=== PATIENT | female | born 1950 | race Caucasian/White ===

== ENCOUNTER 2022-08-15 08:35 | Emergency (ER) | payer MEDICARE, OTHER ==
[2022-08-15] MEDS ORDERED: HYDROcodone/Acetaminophen 10/325 mg Tablet ONE (09:12)
[2022-08-15] MEDS ORDERED: Ketorolac Tromethamine 60 MG/2 ML VIAL ONE (09:12)
[2022-08-15 09:56] LABS: Bilirubin Moderate (Negative); Blood, Urine Negative (Negative); Glucose, Urine (Dipstick) Negative (Negative); Ketone, Urine 15 mg/dL (Negative); Leukocyte Small (Negative); Nitrite Positive (Negative); Protein, Urine (Dipstick) 100 mg/dL (Neg-Trace)
[2022-08-15 09:58] LABS: Clarity Cloudy (Clear); Specific Gravity, Urine 1.022 (1.002-1.036)
[2022-08-15] MEDS ORDERED: Nitrofurantoin Monohyd/M-Cryst 100 MG CAP ONE (10:01)
[2022-08-15 10:13] LABS: Bacteria/HPF 3+ HPF (None Seen); Mucous/LPF 4+ LPF (<2+); RBC/HPF 0-3 HPF (0-3); WBC/HPF Greater Than 50 HPF (0-3)
== END 2022-08-15 10:39 | disposition home or self-care (01) ==
LOC: BURERS 08:35
DX: N39.0 Urinary tract infection, site not specified (principal); M47.816 Spondylosis without myelopathy or radiculopathy, lumbar region; I25.10 Atherosclerotic heart disease of native coronary artery without angina pectoris; E78.5 Hyperlipidemia, unspecified; I10 Essential (primary) hypertension
CPT/HCPCS: 72100; 72170; 81003; 81015; 96372; J1885

== ENCOUNTER 2022-08-20 12:58 | Inpatient (IN) | payer MEDICARE, OTHER ==
[2022-08-20 13:58] LABS: #Basophils 0.1 thou/uL (0.0-0.2); #Lymphocytes 1.1 thou/uL (1.20-3.40); #Monocytes 0.4 thou/uL (0.11-0.59); #Neutrophils 5.8 thou/uL (1.40-6.50); %Basophils 0.8 % (0.0-1.0); %Eosinophils 0.2 % (0.0-10.0); %Lymphocytes 14.7 % (21.0-51.0); %Monocytes 5.9 % (0.0-10.0); %Neutrophils 78.4 % (42.0-75.0); Hemoglobin 12.4 g/dL (12.0-16.0); Mean Corpuscular HGB CONC 30.6 g/dL (32.0-36.0); Mean Corpuscular Hemoglobin 26.9 pg (27.0-31.0); Mean Platelet Volume 6.7 fL (7.4-10.4); Platelet Count 271 10x3/uL (130-400); RBC Distribution Width 13.5 % (11.5-14.5); Red Blood Cell (RBC) Count 4.61 mill/uL (4.20-5.40); White Blood Cell (WBC) Count 7.4 10x3/uL (4.8-10.8)
[2022-08-20] MEDS ORDERED: Ketorolac Tromethamine 30 MG/ML VIAL ONE (14:11)
[2022-08-20] MEDS ORDERED: Fentanyl 100 MCG/2 ML VIAL ONE ×3 (14:11→21:21)
[2022-08-20 14:16] LABS: ALT (SGPT) 18 U/L (8-55); AST (SGOT) 20 U/L (5-34); Albumin 3.3 g/dL (3.4-4.8); Alkaline Phosphatase 198 U/L (40-110); Anion Gap 13 mmol/L (10-20); BUN (Urea Nitrogen) 12 mg/dL (9.8-20.1); Bilirubin, Total 1.4 mg/dL (0.2-1.2); Calc. Creatinine Clearance 0 mL/min (70-130); Calcium 8.9 mg/dL (7.8-10.44); Carbon Dioxide 34 mmol/L (23-31); Chloride 96 mmol/L (98-107); Estimated GFR 87; Globulin 4.2 g/dL (2.4-3.5); Glucose 98 mg/dL (80-115); Potassium 2.8 mmol/L (3.5-5.1); Protein, Total 7.5 g/dL (5.8-8.1); Sodium 140 mmol/L (136-145)
[2022-08-20] MEDS ORDERED: Ondansetron PF 4 MG/2 ML Vial ONE (14:37)
[2022-08-20 15:58] LABS: Clarity Clear (Clear)
[2022-08-20 15:59] LABS: Bilirubin Small (Negative); Blood, Urine Negative (Negative); Glucose, Urine (Dipstick) Negative (Negative); Ketone, Urine 80 mg/dL (Negative); Leukocyte Negative (Negative); Nitrite Negative (Negative); Protein, Urine (Dipstick) Trace mg/dL (Neg-Trace); Specific Gravity, Urine 1.015 (1.005-1.030)
[2022-08-20] MEDS ORDERED: Potassium Chloride 20 MEQ TAB ONE (16:27)
[2022-08-20] MEDS ORDERED: Ibuprofen 200 MG TAB PO PRN (17:15)
[2022-08-20] MEDS ORDERED: HYDROcodone/Acetaminophen 5/325 mg Tablet PO PRN ×2 (17:18)
[2022-08-20] MEDS ORDERED: fentaNYL 50 mcg/mL 1 mL Vial SLOW IVP PRN (17:19)
[2022-08-20] MEDS ORDERED: Ondansetron ODT 4 MG TAB SL PRN (17:30)
[2022-08-20] MEDS ORDERED: Acetaminophen 325 MG TAB PO PRN (17:30)
[2022-08-20] MEDS ORDERED: Ondansetron PF 4 MG/2 ML Vial IVP PRN (17:30)
[2022-08-20] MEDS: HYDROcodone/Acetaminophen 5/325 mg Tablet PO SCH (18:39)
[2022-08-20] MEDS: Gabapentin 300 MG CAP PO SCH (20:59)
[2022-08-20] MEDS: Amlodipine 5 MG TAB PO SCH (21:00)
[2022-08-20] MEDS: rOPINIRole HCl 0.25 MG TAB PO SCH (21:00)
[2022-08-20] MEDS ORDERED: Nitrofurantoin Monohyd/M-Cryst 100 MG CAP PO SCH (21:00)
[2022-08-20] MEDS: Atorvastatin Calcium 10 MG TAB PO SCH (21:01)
[2022-08-20] MEDS: Carvedilol 3.125 MG TAB PO SCH (21:01)
[2022-08-20] MEDS: Lisinopril 20 MG TAB PO SCH (21:01)
[2022-08-20] MEDS: hydrALAZINE 25 MG TAB PO SCH (21:01)
[2022-08-20] MEDS: Fentanyl 100 MCG/2 ML VIAL SLOW IVP PRN (21:38)
[2022-08-21] MEDS: HYDROcodone/Acetaminophen 5/325 mg Tablet PO SCH (00:14)
[2022-08-21] MEDS: Gabapentin 300 MG CAP PO SCH ×3 (05:43→21:50)
[2022-08-21] MEDS: Levothyroxine Sodium 50 MCG TAB PO SCH (05:44)
[2022-08-21] MEDS: Acetaminophen 325 MG TAB PO PRN ×2 (05:47→21:48)
[2022-08-21 06:37] LABS: Anion Gap 12 mmol/L (10-20); BUN (Urea Nitrogen) 15 mg/dL (9.8-20.1); Calc. Creatinine Clearance 115 mL/min (70-130); Calcium 8.8 mg/dL (7.8-10.44); Carbon Dioxide 33 mmol/L (23-31); Chloride 95 mmol/L (98-107); Estimated GFR 77; Glucose 99 mg/dL (80-115); Sodium 137 mmol/L (136-145)
[2022-08-21] MEDS ORDERED: Fentanyl 100 MCG/2 ML VIAL ONE (07:47)
[2022-08-21] MEDS: Fentanyl 100 MCG/2 ML VIAL SLOW IVP PRN (07:57)
[2022-08-21] MEDS: Cholecalciferol 1,000 UNITS (25 MCG) TAB PO SCH (10:09)
[2022-08-21] MEDS: Clopidogrel Bisulfate 75 MG TAB PO SCH (10:09)
[2022-08-21] MEDS: Cyanocobalamin (Vitamin B-12) 1,000 MCG TAB PO SCH (10:09)
[2022-08-21] MEDS: Calcium Carbonate 500 MG TAB PO SCH (10:10)
[2022-08-21] MEDS: Carvedilol 3.125 MG TAB PO SCH ×2 (10:10→21:46)
[2022-08-21] MEDS: Aspirin 81 mg Enteric Coated Tablet PO SCH (10:10)
[2022-08-21] MEDS: hydrALAZINE 25 MG TAB PO SCH ×2 (10:10→21:45)
[2022-08-21] MEDS: HYDROcodone/Acetaminophen 10/325 mg Tablet PO PRN ×2 (10:20→17:08)
[2022-08-21] MEDS ORDERED: Potassium Chloride 20 MEQ TAB PO SCH (13:00)
[2022-08-21] MEDS ORDERED: Fentanyl 100 MCG/2 ML VIAL SLOW IVP PRN (18:05)
[2022-08-21 19:20] VITALS: BMI 51.9
[2022-08-21] MEDS: Lisinopril 20 MG TAB PO SCH (21:47)
[2022-08-21] MEDS: rOPINIRole HCl 0.25 MG TAB PO SCH (21:47)
[2022-08-21] MEDS: Amlodipine 5 MG TAB PO SCH (21:48)
[2022-08-21] MEDS: Atorvastatin Calcium 10 MG TAB PO SCH (21:53)
[2022-08-22] MEDS ORDERED: Fentanyl 100 MCG/2 ML VIAL ONE (05:12)
[2022-08-22] MEDS: Levothyroxine Sodium 50 MCG TAB PO SCH (05:21)
[2022-08-22] MEDS: Gabapentin 300 MG CAP PO SCH ×3 (06:00→21:38)
[2022-08-22] MEDS ORDERED: Polyethylene Glycol 3350 17 GM Packet PO PRN (07:41)
[2022-08-22] MEDS: Calcium Carbonate 500 MG TAB PO SCH (08:31)
[2022-08-22] MEDS: Cyanocobalamin (Vitamin B-12) 1,000 MCG TAB PO SCH (08:31)
[2022-08-22] MEDS: Cholecalciferol 1,000 UNITS (25 MCG) TAB PO SCH (08:32)
[2022-08-22] MEDS: Senokot S 8.6-50 MG TAB PO SCH ×2 (08:32→20:15)
[2022-08-22] MEDS: hydrALAZINE 25 MG TAB PO SCH ×2 (08:32→20:14)
[2022-08-22] MEDS: Aspirin 81 mg Enteric Coated Tablet PO SCH (08:33)
[2022-08-22] MEDS: Potassium Chloride 20 MEQ TAB PO SCH (08:33)
[2022-08-22] MEDS: Carvedilol 3.125 MG TAB PO SCH ×2 (08:33→20:18)
[2022-08-22] MEDS: Clopidogrel Bisulfate 75 MG TAB PO SCH (08:33)
[2022-08-22] MEDS: HYDROcodone/Acetaminophen 10/325 mg Tablet PO PRN ×2 (12:43→20:12)
[2022-08-22] MEDS: Ondansetron ODT 4 MG TAB PO PRN (14:05)
[2022-08-22] MEDS: rOPINIRole HCl 0.25 MG TAB PO SCH (20:14)
[2022-08-22] MEDS: Atorvastatin Calcium 10 MG TAB PO SCH (20:15)
[2022-08-22] MEDS: Amlodipine 5 MG TAB PO SCH (20:16)
[2022-08-22] MEDS: Lisinopril 20 MG TAB PO SCH (20:17)
[2022-08-23] MEDS: Ondansetron ODT 4 MG TAB PO PRN (01:09)
[2022-08-23] MEDS: HYDROcodone/Acetaminophen 10/325 mg Tablet PO PRN ×2 (02:17→08:26)
[2022-08-23] MEDS: fentaNYL 50 mcg/mL 1 mL Vial SLOW IVP PRN ×2 (04:14→13:09)
[2022-08-23 05:34] VITALS: BP 132/77; TEMP 97.9
[2022-08-23 05:39] LABS: Anion Gap 11 mmol/L (10-20); BUN (Urea Nitrogen) 17 mg/dL (9.8-20.1); Calc. Creatinine Clearance 151 mL/min (70-130); Calcium 8.5 mg/dL (7.8-10.44); Carbon Dioxide 33 mmol/L (23-31); Chloride 100 mmol/L (98-107); Estimated GFR 93; Glucose 106 mg/dL (80-115); Potassium 3.8 mmol/L (3.5-5.1); Sodium 140 mmol/L (136-145)
[2022-08-23] MEDS: Levothyroxine Sodium 50 MCG TAB PO SCH (05:55)
[2022-08-23] MEDS: Gabapentin 300 MG CAP PO SCH ×2 (05:55→13:08)
[2022-08-23] MEDS: Senokot S 8.6-50 MG TAB PO SCH (08:26)
[2022-08-23] MEDS: Potassium Chloride 20 MEQ TAB PO SCH (08:28)
[2022-08-23] MEDS: Cyanocobalamin (Vitamin B-12) 1,000 MCG TAB PO SCH (08:28)
[2022-08-23] MEDS: hydrALAZINE 25 MG TAB PO SCH (08:29)
[2022-08-23] MEDS: Carvedilol 3.125 MG TAB PO SCH (08:29)
[2022-08-23] MEDS: Cholecalciferol 1,000 UNITS (25 MCG) TAB PO SCH (08:29)
[2022-08-23] MEDS: Clopidogrel Bisulfate 75 MG TAB PO SCH (08:30)
[2022-08-23] MEDS: Aspirin 81 mg Enteric Coated Tablet PO SCH (08:30)
[2022-08-23] MEDS: Calcium Carbonate 500 MG TAB PO SCH (08:31)
== END 2022-08-23 13:24 | disposition swing bed (61) | DRG 543 ==
LOC: BURERS 12:58 → BURMED 15:44
PROVIDERS: ADMIT Family Medicine; ATTEND Family Medicine
DX: M48.56XA Collapsed vertebra, not elsewhere classified, lumbar region, initial encounter for fracture (principal); N39.0 Urinary tract infection, site not specified; I25.10 Atherosclerotic heart disease of native coronary artery without angina pectoris; E78.5 Hyperlipidemia, unspecified; I10 Essential (primary) hypertension; E66.9 Obesity, unspecified; E03.9 Hypothyroidism, unspecified; M47.816 Spondylosis without myelopathy or radiculopathy, lumbar region; G89.29 Other chronic pain; G47.33 Obstructive sleep apnea (adult) (pediatric); R26.9 Unspecified abnormalities of gait and mobility; R29.890 Loss of height; E87.6 Hypokalemia; Z95.5 Presence of coronary angioplasty implant and graft; Z90.49 Acquired absence of other specified parts of digestive tract; Z90.710 Acquired absence of both cervix and uterus; Z98.890 Other specified postprocedural states; Z79.82 Long term (current) use of aspirin
CPT/HCPCS: 36415; 51701; 72131; 80048; 80053; 81003; 85025; 87086; 96374; 96375; 96376; J1885; J2405; J3010; Q0162

== ENCOUNTER 2022-08-23 10:51 | Inpatient (IN) | payer MEDICARE, OTHER ==
[2022-08-23] MEDS ORDERED: Calcium Carbonate 500 MG ChewTAB PO PRN (15:15)
[2022-08-23] MEDS ORDERED: Acetaminophen 650 MG Suppository PR PRN (15:15)
[2022-08-23] MEDS ORDERED: Zolpidem Tartrate 5 MG TAB PO PRN (15:15)
[2022-08-23] MEDS ORDERED: Senokot S 8.6-50 MG TAB PO PRN (15:15)
[2022-08-23] MEDS ORDERED: Loperamide HCl 2 MG CAP PO PRN ×2 (15:15)
[2022-08-23] MEDS ORDERED: Bisacodyl 10 MG SUPP PR PRN (15:15)
[2022-08-23] MEDS ORDERED: Ondansetron PF 4 MG/2 ML Vial SLOW IVP PRN (15:15)
[2022-08-23 17:34] VITALS: BMI 51.6
[2022-08-23] MEDS: HYDROcodone/Acetaminophen 10/325 mg Tablet PO PRN (18:46)
[2022-08-23] MEDS: Famotidine 20 MG TAB PO SCH (20:37)
[2022-08-23] MEDS: Bisacodyl 5 MG TAB PO PRN (20:41)
[2022-08-23] MEDS ORDERED: HYDROcodone/Acetaminophen 10/325 mg Tablet PO PRN (21:48)
[2022-08-23] MEDS ORDERED: Ondansetron ODT 4 MG TAB PO PRN (21:54)
[2022-08-23] MEDS ORDERED: Lisinopril 20 MG TAB PO SCH (22:00)
[2022-08-23] MEDS ORDERED: hydrALAZINE 25 MG TAB PO SCH (22:00)
[2022-08-23] MEDS ORDERED: Atorvastatin Calcium 10 MG TAB PO SCH (22:00)
[2022-08-23] MEDS ORDERED: Carvedilol 3.125 MG TAB PO SCH (22:00)
[2022-08-23] MEDS ORDERED: Senokot S 8.6-50 MG TAB PO SCH (22:00)
[2022-08-23] MEDS ORDERED: rOPINIRole HCl 0.25 MG TAB PO SCH (22:00)
[2022-08-23] MEDS ORDERED: Amlodipine 5 MG TAB PO SCH (22:00)
[2022-08-23] MEDS: rOPINIRole HCl 0.25 MG TAB PO SCH (22:21)
[2022-08-23] MEDS: Gabapentin 300 MG CAP PO SCH (22:22)
[2022-08-23] MEDS: Atorvastatin Calcium 10 MG TAB PO SCH (22:23)
[2022-08-23] MEDS: Amlodipine 5 MG TAB PO SCH ×2 (22:24→22:27)
[2022-08-23] MEDS: hydrALAZINE 25 MG TAB PO SCH (22:25)
[2022-08-23] MEDS: Senokot S 8.6-50 MG TAB PO SCH (22:26)
[2022-08-23] MEDS: Carvedilol 3.125 MG TAB PO SCH (22:27)
[2022-08-23] MEDS: Lisinopril 20 MG TAB PO SCH (22:31)
[2022-08-24] MEDS: HYDROcodone/Acetaminophen 10/325 mg Tablet PO PRN ×4 (03:11→18:25)
[2022-08-24] MEDS: Ondansetron ODT 4 MG TAB SL PRN (03:13)
[2022-08-24] MEDS: Gabapentin 300 MG CAP PO SCH ×3 (05:27→22:09)
[2022-08-24] MEDS: Levothyroxine Sodium 25 MCG TAB PO SCH (05:28)
[2022-08-24] MEDS: Levothyroxine Sodium 100 MCG TAB PO SCH (05:28)
[2022-08-24] MEDS: Polyethylene Glycol 3350 17 GM Packet PO SCH (08:41)
[2022-08-24] MEDS: Cholecalciferol 1,000 UNITS (25 MCG) TAB PO SCH (08:41)
[2022-08-24] MEDS: Senokot S 8.6-50 MG TAB PO SCH ×2 (08:42→22:13)
[2022-08-24] MEDS: Potassium Chloride 20 MEQ TAB PO SCH (08:43)
[2022-08-24] MEDS: Aspirin 81 mg Enteric Coated Tablet PO SCH (08:43)
[2022-08-24] MEDS: Calcium Carbonate 500 MG TAB PO SCH (08:43)
[2022-08-24] MEDS: Clopidogrel Bisulfate 75 MG TAB PO SCH (08:43)
[2022-08-24] MEDS: Famotidine 20 MG TAB PO SCH ×2 (08:43→22:13)
[2022-08-24] MEDS: Cyanocobalamin (Vitamin B-12) 1,000 MCG TAB PO SCH (08:43)
[2022-08-24] MEDS: Carvedilol 3.125 MG TAB PO SCH ×2 (08:44→17:50)
[2022-08-24] MEDS: tiZANidine HCl 4 MG TAB PO PRN (10:06)
[2022-08-24] MEDS: Bisacodyl 5 MG TAB PO PRN (17:54)
[2022-08-24] MEDS: rOPINIRole HCl 0.25 MG TAB PO SCH (22:11)
[2022-08-24] MEDS: Lisinopril 20 MG TAB PO SCH (22:11)
[2022-08-24] MEDS: Amlodipine 5 MG TAB PO SCH (22:12)
[2022-08-24] MEDS: hydrALAZINE 25 MG TAB PO SCH (22:12)
[2022-08-24] MEDS: Atorvastatin Calcium 10 MG TAB PO SCH (22:13)
[2022-08-25] MEDS: HYDROcodone/Acetaminophen 10/325 mg Tablet PO PRN ×4 (01:58→22:11)
[2022-08-25] MEDS: Levothyroxine Sodium 25 MCG TAB PO SCH (05:30)
[2022-08-25] MEDS: Gabapentin 300 MG CAP PO SCH ×3 (05:30→21:42)
[2022-08-25] MEDS: Levothyroxine Sodium 100 MCG TAB PO SCH (05:30)
[2022-08-25] MEDS ORDERED: Milk Of Magnesia 30 ML UDCUP PO PRN (07:31)
[2022-08-25] MEDS: Cholecalciferol 1,000 UNITS (25 MCG) TAB PO SCH (08:36)
[2022-08-25] MEDS: Senokot S 8.6-50 MG TAB PO SCH ×2 (08:37→21:41)
[2022-08-25] MEDS: Famotidine 20 MG TAB PO SCH ×2 (08:37→21:42)
[2022-08-25] MEDS: Calcium Carbonate 500 MG TAB PO SCH (08:38)
[2022-08-25] MEDS: Carvedilol 3.125 MG TAB PO SCH ×2 (08:38→17:22)
[2022-08-25] MEDS: Cyanocobalamin (Vitamin B-12) 1,000 MCG TAB PO SCH (08:38)
[2022-08-25] MEDS: Aspirin 81 mg Enteric Coated Tablet PO SCH (08:38)
[2022-08-25] MEDS: Clopidogrel Bisulfate 75 MG TAB PO SCH (08:38)
[2022-08-25] MEDS: Potassium Chloride 20 MEQ TAB PO SCH (08:38)
[2022-08-25] MEDS: hydrALAZINE 25 MG TAB PO SCH ×2 (08:44→21:43)
[2022-08-25] MEDS: Polyethylene Glycol 3350 17 GM Packet PO SCH (08:44)
[2022-08-25] MEDS: rOPINIRole HCl 0.25 MG TAB PO SCH ×2 (21:41→21:49)
[2022-08-25] MEDS: Atorvastatin Calcium 10 MG TAB PO SCH (21:45)
[2022-08-25] MEDS: Lisinopril 20 MG TAB PO SCH (21:45)
[2022-08-25] MEDS: Amlodipine 5 MG TAB PO SCH (22:10)
[2022-08-25] MEDS: Nystatin Powder 15 GM BOT TOP PRN (22:12)
[2022-08-26] MEDS: Gabapentin 300 MG CAP PO SCH ×3 (05:08→22:35)
[2022-08-26] MEDS: Levothyroxine Sodium 100 MCG TAB PO SCH (05:08)
[2022-08-26] MEDS: Levothyroxine Sodium 25 MCG TAB PO SCH (05:08)
[2022-08-26] MEDS: Ondansetron ODT 4 MG TAB SL PRN (09:44)
[2022-08-26] MEDS: tiZANidine HCl 4 MG TAB PO PRN (09:49)
[2022-08-26] MEDS: Famotidine 20 MG TAB PO SCH ×2 (09:50→22:33)
[2022-08-26] MEDS: Cholecalciferol 1,000 UNITS (25 MCG) TAB PO SCH (09:50)
[2022-08-26] MEDS: hydrALAZINE 25 MG TAB PO SCH ×2 (09:51→22:34)
[2022-08-26] MEDS: Senokot S 8.6-50 MG TAB PO SCH ×2 (09:51→22:35)
[2022-08-26] MEDS: Potassium Chloride 20 MEQ TAB PO SCH (09:51)
[2022-08-26] MEDS: Clopidogrel Bisulfate 75 MG TAB PO SCH (09:51)
[2022-08-26] MEDS: Cyanocobalamin (Vitamin B-12) 1,000 MCG TAB PO SCH (09:51)
[2022-08-26] MEDS: Aspirin 81 mg Enteric Coated Tablet PO SCH (09:52)
[2022-08-26] MEDS: Carvedilol 3.125 MG TAB PO SCH ×2 (09:52→16:24)
[2022-08-26] MEDS: Calcium Carbonate 500 MG TAB PO SCH (09:52)
[2022-08-26] MEDS: Polyethylene Glycol 3350 17 GM Packet PO SCH (09:57)
[2022-08-26] MEDS: HYDROcodone/Acetaminophen 10/325 mg Tablet PO PRN ×2 (10:05→16:23)
[2022-08-26] MEDS: Amlodipine 5 MG TAB PO SCH (22:33)
[2022-08-26] MEDS: Lisinopril 20 MG TAB PO SCH (22:34)
[2022-08-26] MEDS: rOPINIRole HCl 0.25 MG TAB PO SCH (22:34)
[2022-08-26] MEDS: Atorvastatin Calcium 10 MG TAB PO SCH (22:35)
[2022-08-26] MEDS: Nystatin Powder 15 GM BOT TOP PRN (22:36)
[2022-08-27] MEDS: tiZANidine HCl 4 MG TAB PO PRN (04:09)
[2022-08-27] MEDS: Gabapentin 300 MG CAP PO SCH ×3 (06:11→22:15)
[2022-08-27] MEDS: Levothyroxine Sodium 100 MCG TAB PO SCH (06:11)
[2022-08-27] MEDS: Levothyroxine Sodium 25 MCG TAB PO SCH (06:11)
[2022-08-27] MEDS: Polyethylene Glycol 3350 17 GM Packet PO SCH (09:10)
[2022-08-27] MEDS: HYDROcodone/Acetaminophen 10/325 mg Tablet PO PRN ×3 (09:10→22:37)
[2022-08-27] MEDS: Cyanocobalamin (Vitamin B-12) 1,000 MCG TAB PO SCH (09:12)
[2022-08-27] MEDS: Cholecalciferol 1,000 UNITS (25 MCG) TAB PO SCH (09:12)
[2022-08-27] MEDS: Calcium Carbonate 500 MG TAB PO SCH (09:12)
[2022-08-27] MEDS: Potassium Chloride 20 MEQ TAB PO SCH (09:12)
[2022-08-27] MEDS: Aspirin 81 mg Enteric Coated Tablet PO SCH (09:12)
[2022-08-27] MEDS: Carvedilol 3.125 MG TAB PO SCH ×2 (09:13→16:11)
[2022-08-27] MEDS: Clopidogrel Bisulfate 75 MG TAB PO SCH (09:13)
[2022-08-27] MEDS: Senokot S 8.6-50 MG TAB PO SCH ×2 (09:13→22:13)
[2022-08-27] MEDS: hydrALAZINE 25 MG TAB PO SCH ×2 (09:13→22:14)
[2022-08-27] MEDS: Famotidine 20 MG TAB PO SCH ×2 (09:25→22:14)
[2022-08-27] MEDS ORDERED: DULoxetine 30 MG CAP PO SCH (18:30)
[2022-08-27] MEDS: rOPINIRole HCl 0.25 MG TAB PO SCH (22:13)
[2022-08-27] MEDS: Atorvastatin Calcium 10 MG TAB PO SCH (22:13)
[2022-08-27] MEDS: Lisinopril 20 MG TAB PO SCH (22:13)
[2022-08-27] MEDS: Amlodipine 5 MG TAB PO SCH (22:14)
[2022-08-28] MEDS: HYDROcodone/Acetaminophen 10/325 mg Tablet PO PRN ×3 (02:57→22:01)
[2022-08-28] MEDS: Levothyroxine Sodium 25 MCG TAB PO SCH (05:36)
[2022-08-28] MEDS: Gabapentin 300 MG CAP PO SCH ×4 (05:36→22:03)
[2022-08-28] MEDS: Levothyroxine Sodium 100 MCG TAB PO SCH (05:36)
[2022-08-28] MEDS: Cyanocobalamin (Vitamin B-12) 1,000 MCG TAB PO SCH (08:50)
[2022-08-28] MEDS: DULoxetine 30 MG CAP PO SCH (08:50)
[2022-08-28] MEDS: Aspirin 81 mg Enteric Coated Tablet PO SCH (08:50)
[2022-08-28] MEDS: Cholecalciferol 1,000 UNITS (25 MCG) TAB PO SCH (08:51)
[2022-08-28] MEDS: Calcium Carbonate 500 MG TAB PO SCH (08:53)
[2022-08-28] MEDS: hydrALAZINE 25 MG TAB PO SCH ×2 (08:53→22:03)
[2022-08-28] MEDS: Potassium Chloride 20 MEQ TAB PO SCH (08:53)
[2022-08-28] MEDS: Clopidogrel Bisulfate 75 MG TAB PO SCH (08:53)
[2022-08-28] MEDS: Famotidine 20 MG TAB PO SCH ×2 (08:53→22:03)
[2022-08-28] MEDS: Carvedilol 3.125 MG TAB PO SCH ×2 (08:53→17:54)
[2022-08-28] MEDS: Polyethylene Glycol 3350 17 GM Packet PO SCH (08:54)
[2022-08-28] MEDS: Senokot S 8.6-50 MG TAB PO SCH ×2 (08:54→22:03)
[2022-08-28] MEDS: Ibuprofen 200 MG TAB PO PRN (08:55)
[2022-08-28] MEDS: Ondansetron ODT 4 MG TAB SL PRN ×2 (11:04→21:54)
[2022-08-28 11:34] LABS: #Basophils 0.1 thou/uL (0.0-0.2); #Eosinphils 0.1 thou/uL (0.0-0.7); #Lymphocytes 1.2 thou/uL (1.20-3.40); #Monocytes 0.6 thou/uL (0.11-0.59); #Neutrophils 8.2 thou/uL (1.40-6.50); %Basophils 0.8 % (0.0-1.0); %Eosinophils 0.9 % (0.0-10.0); %Lymphocytes 11.4 % (21.0-51.0); %Monocytes 5.7 % (0.0-10.0); %Neutrophils 81.2 % (42.0-75.0); Hemoglobin 10.3 g/dL (12.0-16.0); Mean Corpuscular HGB CONC 31.8 g/dL (32.0-36.0); Mean Corpuscular Hemoglobin 27.4 pg (27.0-31.0); Mean Corpuscular Volume 86.2 fl (78.0-98.0); Mean Platelet Volume 7.4 fL (7.4-10.4); Platelet Count 349 10x3/uL (130-400); RBC Distribution Width 13.6 % (11.5-14.5); Red Blood Cell (RBC) Count 3.77 mill/uL (4.20-5.40); White Blood Cell (WBC) Count 10.2 10x3/uL (4.8-10.8)
[2022-08-28 11:59] LABS: ALT (SGPT) 46 U/L (8-55); AST (SGOT) 87 U/L (5-34); Albumin 3.1 g/dL (3.4-4.8); Alkaline Phosphatase 315 U/L (40-110); Anion Gap 12 mmol/L (10-20); BUN (Urea Nitrogen) 39 mg/dL (9.8-20.1); Bilirubin, Total 0.9 mg/dL (0.2-1.2); Calc. Creatinine Clearance 107 mL/min (70-130); Calcium 9.1 mg/dL (7.8-10.44); Carbon Dioxide 29 mmol/L (23-31); Chloride 94 mmol/L (98-107); Estimated GFR 61; Globulin 4.2 g/dL (2.4-3.5); Glucose 107 mg/dL (80-115); Potassium 5.1 mmol/L (3.5-5.1); Protein, Total 7.3 g/dL (5.8-8.1); Sodium 130 mmol/L (136-145)
[2022-08-28] MEDS: Amlodipine 5 MG TAB PO SCH (22:00)
[2022-08-28] MEDS: Atorvastatin Calcium 10 MG TAB PO SCH (22:01)
[2022-08-28] MEDS: Lisinopril 20 MG TAB PO SCH (22:02)
[2022-08-28] MEDS: rOPINIRole HCl 0.25 MG TAB PO SCH (22:03)
[2022-08-29] MEDS: Levothyroxine Sodium 100 MCG TAB PO SCH (05:50)
[2022-08-29] MEDS: Gabapentin 300 MG CAP PO SCH ×3 (05:50→22:23)
[2022-08-29] MEDS: Levothyroxine Sodium 25 MCG TAB PO SCH (05:50)
[2022-08-29] MEDS: tiZANidine HCl 4 MG TAB PO PRN ×2 (05:54→20:47)
[2022-08-29] MEDS: Cholecalciferol 1,000 UNITS (25 MCG) TAB PO SCH (09:36)
[2022-08-29] MEDS: DULoxetine 30 MG CAP PO SCH (09:36)
[2022-08-29] MEDS: Polyethylene Glycol 3350 17 GM Packet PO SCH (09:36)
[2022-08-29] MEDS: Calcium Carbonate 500 MG TAB PO SCH (09:37)
[2022-08-29] MEDS: Potassium Chloride 10 MEQ TAB PO SCH (09:37)
[2022-08-29] MEDS: Clopidogrel Bisulfate 75 MG TAB PO SCH (09:37)
[2022-08-29] MEDS: Senokot S 8.6-50 MG TAB PO SCH ×2 (09:37→20:47)
[2022-08-29] MEDS: Cyanocobalamin (Vitamin B-12) 1,000 MCG TAB PO SCH (09:37)
[2022-08-29] MEDS: Aspirin 81 mg Enteric Coated Tablet PO SCH (09:37)
[2022-08-29] MEDS: Famotidine 20 MG TAB PO SCH ×2 (09:37→20:47)
[2022-08-29] MEDS: Carvedilol 3.125 MG TAB PO SCH ×2 (09:38→18:02)
[2022-08-29] MEDS: hydrALAZINE 25 MG TAB PO SCH ×2 (09:41→20:46)
[2022-08-29] MEDS: HYDROcodone/Acetaminophen 10/325 mg Tablet PO PRN ×2 (09:42→18:02)
[2022-08-29] MEDS: Ibuprofen 200 MG TAB PO PRN (12:19)
[2022-08-29] MEDS: Ondansetron ODT 4 MG TAB SL PRN (17:34)
[2022-08-29] MEDS: rOPINIRole HCl 0.25 MG TAB PO SCH (20:46)
[2022-08-29] MEDS: Lisinopril 20 MG TAB PO SCH (20:46)
[2022-08-29] MEDS: Atorvastatin Calcium 10 MG TAB PO SCH (20:47)
[2022-08-29] MEDS: Amlodipine 5 MG TAB PO SCH (20:47)
[2022-08-29] MEDS: Nystatin Powder 15 GM BOT TOP PRN (20:47)
[2022-08-30] MEDS: Levothyroxine Sodium 25 MCG TAB PO SCH (05:02)
[2022-08-30] MEDS: Levothyroxine Sodium 100 MCG TAB PO SCH (05:03)
[2022-08-30] MEDS: Gabapentin 300 MG CAP PO SCH ×4 (05:03→22:10)
[2022-08-30] MEDS: HYDROcodone/Acetaminophen 10/325 mg Tablet PO PRN ×3 (05:26→13:42)
[2022-08-30 06:02] LABS: #Basophils 0.1 thou/uL (0.0-0.2); #Eosinphils 0.1 thou/uL (0.0-0.7); #Lymphocytes 1.1 thou/uL (1.20-3.40); #Monocytes 0.6 thou/uL (0.11-0.59); #Neutrophils 8.1 thou/uL (1.40-6.50); %Basophils 1.2 % (0.0-1.0); %Eosinophils 0.7 % (0.0-10.0); %Lymphocytes 11.2 % (21.0-51.0); %Monocytes 5.7 % (0.0-10.0); %Neutrophils 81.3 % (42.0-75.0); Hemoglobin 10.2 g/dL (12.0-16.0); Mean Corpuscular HGB CONC 31.6 g/dL (32.0-36.0); Mean Corpuscular Hemoglobin 27.6 pg (27.0-31.0); Mean Corpuscular Volume 87.3 fl (78.0-98.0); Mean Platelet Volume 7.7 fL (7.4-10.4); Platelet Count 385 10x3/uL (130-400); RBC Distribution Width 13.7 % (11.5-14.5); Red Blood Cell (RBC) Count 3.71 mill/uL (4.20-5.40)
[2022-08-30 06:16] LABS: ALT (SGPT) 87 U/L (8-55); AST (SGOT) 117 U/L (5-34); Albumin 3.1 g/dL (3.4-4.8); Alkaline Phosphatase 449 U/L (40-110); Anion Gap 13 mmol/L (10-20); BUN (Urea Nitrogen) 46 mg/dL (9.8-20.1); Bilirubin, Direct 0.4 mg/dL (0.1-0.3); Bilirubin, Total 0.7 mg/dL (0.2-1.2); Calc. Creatinine Clearance 73 mL/min (70-130); Calcium 9.3 mg/dL (7.8-10.44); Carbon Dioxide 28 mmol/L (23-31); Chloride 95 mmol/L (98-107); Estimated GFR 39; Globulin 4.4 g/dL (2.4-3.5); Glucose 95 mg/dL (80-115); Potassium 5.3 mmol/L (3.5-5.1); Protein, Total 7.5 g/dL (5.8-8.1); Sodium 131 mmol/L (136-145)
[2022-08-30] MEDS: DULoxetine 30 MG CAP PO SCH (08:21)
[2022-08-30] MEDS: Cholecalciferol 1,000 UNITS (25 MCG) TAB PO SCH (08:21)
[2022-08-30] MEDS: hydrALAZINE 25 MG TAB PO SCH ×2 (08:23→22:11)
[2022-08-30] MEDS: Senokot S 8.6-50 MG TAB PO SCH ×2 (08:23→22:00)
[2022-08-30] MEDS: Polyethylene Glycol 3350 17 GM Packet PO SCH (08:23)
[2022-08-30] MEDS: Clopidogrel Bisulfate 75 MG TAB PO SCH (08:24)
[2022-08-30] MEDS: Cyanocobalamin (Vitamin B-12) 1,000 MCG TAB PO SCH (08:24)
[2022-08-30] MEDS: Famotidine 20 MG TAB PO SCH ×2 (08:24→22:00)
[2022-08-30] MEDS: Aspirin 81 mg Enteric Coated Tablet PO SCH (08:24)
[2022-08-30] MEDS: Calcium Carbonate 500 MG TAB PO SCH (08:24)
[2022-08-30] MEDS: Potassium Chloride 10 MEQ TAB PO SCH (08:24)
[2022-08-30] MEDS: Carvedilol 3.125 MG TAB PO SCH ×2 (08:24→17:26)
[2022-08-30] MEDS ORDERED: Sodium Chloride 0.9% 1,000 ML IV SCH (08:30)
[2022-08-30] MEDS: Ibuprofen 200 MG TAB PO PRN ×2 (08:32→17:28)
[2022-08-30] MEDS: Amlodipine 5 MG TAB PO SCH (22:00)
[2022-08-30] MEDS: Atorvastatin Calcium 10 MG TAB PO SCH (22:00)
[2022-08-30] MEDS: Lisinopril 20 MG TAB PO SCH (22:00)
[2022-08-30] MEDS: rOPINIRole HCl 0.25 MG TAB PO SCH (22:00)
[2022-08-30] MEDS: Acetaminophen 325 MG TAB PO PRN (22:17)
[2022-08-31] MEDS: Ibuprofen 200 MG TAB PO PRN ×2 (01:19→19:53)
[2022-08-31] MEDS: Levothyroxine Sodium 100 MCG TAB PO SCH (05:09)
[2022-08-31] MEDS: Levothyroxine Sodium 25 MCG TAB PO SCH (05:09)
[2022-08-31] MEDS: Acetaminophen 325 MG TAB PO PRN (05:09)
[2022-08-31] MEDS: Gabapentin 300 MG CAP PO SCH ×3 (05:10→21:01)
[2022-08-31 05:30] LABS: #Basophils 0.1 thou/uL (0.0-0.2); #Eosinphils 0.1 thou/uL (0.0-0.7); #Monocytes 0.6 thou/uL (0.11-0.59); #Neutrophils 5.7 thou/uL (1.40-6.50); %Basophils 0.8 % (0.0-1.0); %Eosinophils 1.2 % (0.0-10.0); %Lymphocytes 13.2 % (21.0-51.0); %Monocytes 7.9 % (0.0-10.0); %Neutrophils 76.9 % (42.0-75.0); Hemoglobin 10.6 g/dL (12.0-16.0); Mean Corpuscular HGB CONC 32.2 g/dL (32.0-36.0); Mean Corpuscular Hemoglobin 27.5 pg (27.0-31.0); Mean Corpuscular Volume 85.5 fl (78.0-98.0); Mean Platelet Volume 7.1 fL (7.4-10.4); Platelet Count 383 10x3/uL (130-400); RBC Distribution Width 13.4 % (11.5-14.5); Red Blood Cell (RBC) Count 3.84 mill/uL (4.20-5.40); White Blood Cell (WBC) Count 7.4 10x3/uL (4.8-10.8)
[2022-08-31 05:43] LABS: ALT (SGPT) 72 U/L (8-55); AST (SGOT) 77 U/L (5-34); Albumin 3.1 g/dL (3.4-4.8); Alkaline Phosphatase 390 U/L (40-110); Anion Gap 13 mmol/L (10-20); BUN (Urea Nitrogen) 34 mg/dL (9.8-20.1); Bilirubin, Total 0.7 mg/dL (0.2-1.2); Calc. Creatinine Clearance 123 mL/min (70-130); Calcium 9.3 mg/dL (7.8-10.44); Carbon Dioxide 28 mmol/L (23-31); Chloride 99 mmol/L (98-107); Estimated GFR 73; Globulin 4.4 g/dL (2.4-3.5); Glucose 100 mg/dL (80-115); Potassium 4.9 mmol/L (3.5-5.1); Protein, Total 7.5 g/dL (5.8-8.1); Sodium 135 mmol/L (136-145)
[2022-08-31] MEDS: DULoxetine 30 MG CAP PO SCH (13:53)
[2022-08-31] MEDS: Cholecalciferol 1,000 UNITS (25 MCG) TAB PO SCH (13:53)
[2022-08-31] MEDS: Senokot S 8.6-50 MG TAB PO SCH ×2 (13:54→20:56)
[2022-08-31] MEDS: Famotidine 20 MG TAB PO SCH ×2 (13:54→20:56)
[2022-08-31] MEDS: Cyanocobalamin (Vitamin B-12) 1,000 MCG TAB PO SCH (13:54)
[2022-08-31] MEDS: Carvedilol 3.125 MG TAB PO SCH ×2 (13:54→16:25)
[2022-08-31] MEDS: Aspirin 81 mg Enteric Coated Tablet PO SCH (13:54)
[2022-08-31] MEDS: HYDROcodone/Acetaminophen 10/325 mg Tablet PO PRN ×2 (13:54→20:54)
[2022-08-31] MEDS: Calcium Carbonate 500 MG TAB PO SCH (13:55)
[2022-08-31] MEDS: Potassium Chloride 10 MEQ TAB PO SCH (13:55)
[2022-08-31] MEDS: Clopidogrel Bisulfate 75 MG TAB PO SCH (13:55)
[2022-08-31] MEDS: Polyethylene Glycol 3350 17 GM Packet PO SCH (13:57)
[2022-08-31] MEDS: hydrALAZINE 25 MG TAB PO SCH ×2 (14:04→20:56)
[2022-08-31] MEDS: tiZANidine HCl 4 MG TAB PO PRN (16:25)
[2022-08-31] MEDS: Lisinopril 20 MG TAB PO SCH (20:55)
[2022-08-31] MEDS: rOPINIRole HCl 0.25 MG TAB PO SCH (20:55)
[2022-08-31] MEDS: Atorvastatin Calcium 10 MG TAB PO SCH (20:55)
[2022-08-31] MEDS: Amlodipine 5 MG TAB PO SCH (20:56)
[2022-09-01] MEDS: HYDROcodone/Acetaminophen 10/325 mg Tablet PO PRN ×3 (03:48→13:16)
[2022-09-01] MEDS: Levothyroxine Sodium 25 MCG TAB PO SCH (05:10)
[2022-09-01] MEDS: Gabapentin 300 MG CAP PO SCH (05:11)
[2022-09-01] MEDS: Levothyroxine Sodium 100 MCG TAB PO SCH (05:11)
[2022-09-01 05:19] LABS: #Basophils 0.1 thou/uL (0.0-0.2); #Eosinphils 0.1 thou/uL (0.0-0.7); #Lymphocytes 1.2 thou/uL (1.20-3.40); #Monocytes 0.4 thou/uL (0.11-0.59); #Neutrophils 5.2 thou/uL (1.40-6.50); %Basophils 0.9 % (0.0-1.0); %Eosinophils 1.7 % (0.0-10.0); %Lymphocytes 17.8 % (21.0-51.0); %Monocytes 5.7 % (0.0-10.0); Hemoglobin 10.5 g/dL (12.0-16.0); Mean Corpuscular HGB CONC 31.5 g/dL (32.0-36.0); Mean Corpuscular Hemoglobin 27.4 pg (27.0-31.0); Mean Corpuscular Volume 87.3 fl (78.0-98.0); Mean Platelet Volume 6.6 fL (7.4-10.4); Platelet Count 442 10x3/uL (130-400); RBC Distribution Width 13.7 % (11.5-14.5); Red Blood Cell (RBC) Count 3.84 mill/uL (4.20-5.40)
[2022-09-01 05:36] LABS: ALT (SGPT) 54 U/L (8-55); AST (SGOT) 48 U/L (5-34); Albumin 3.2 g/dL (3.4-4.8); Alkaline Phosphatase 419 U/L (40-110); Anion Gap 13 mmol/L (10-20); BUN (Urea Nitrogen) 34 mg/dL (9.8-20.1); Bilirubin, Total 0.5 mg/dL (0.2-1.2); Calc. Creatinine Clearance 108 mL/min (70-130); Calcium 9.6 mg/dL (7.8-10.44); Carbon Dioxide 29 mmol/L (23-31); Chloride 99 mmol/L (98-107); Estimated GFR 62; Globulin 4.3 g/dL (2.4-3.5); Glucose 97 mg/dL (80-115); Protein, Total 7.5 g/dL (5.8-8.1); Sodium 136 mmol/L (136-145)
[2022-09-01 06:02] VITALS: BP 95/58; TEMP 98.5
[2022-09-01] MEDS: Potassium Chloride 10 MEQ TAB PO SCH (09:16)
[2022-09-01] MEDS: Clopidogrel Bisulfate 75 MG TAB PO SCH (09:17)
[2022-09-01] MEDS: Senokot S 8.6-50 MG TAB PO SCH (09:18)
[2022-09-01] MEDS: Aspirin 81 mg Enteric Coated Tablet PO SCH (09:18)
[2022-09-01] MEDS: Cyanocobalamin (Vitamin B-12) 1,000 MCG TAB PO SCH (09:18)
[2022-09-01] MEDS: Famotidine 20 MG TAB PO SCH (09:18)
[2022-09-01] MEDS: Cholecalciferol 1,000 UNITS (25 MCG) TAB PO SCH (09:18)
[2022-09-01] MEDS: Carvedilol 3.125 MG TAB PO SCH (09:18)
[2022-09-01] MEDS: Polyethylene Glycol 3350 17 GM Packet PO SCH (09:19)
[2022-09-01] MEDS: Calcium Carbonate 500 MG TAB PO SCH (09:20)
[2022-09-01] MEDS: hydrALAZINE 25 MG TAB PO SCH (09:20)
[2022-09-01] MEDS: DULoxetine 30 MG CAP PO SCH (09:30)
[2022-09-01] MEDS: tiZANidine HCl 4 MG TAB PO PRN (13:23)
== END 2022-09-01 14:30 | DRG 543 ==
LOC: BURMED 14:25
PROVIDERS: ADMIT Family Medicine; ATTEND Family Medicine
DX: M48.56XA Collapsed vertebra, not elsewhere classified, lumbar region, initial encounter for fracture (principal); E87.1 Hypo-osmolality and hyponatremia; Z68.43 Body mass index [BMI] 50.0-59.9, adult; K92.2 Gastrointestinal hemorrhage, unspecified; R26.89 Other abnormalities of gait and mobility; I10 Essential (primary) hypertension; E78.5 Hyperlipidemia, unspecified; G47.33 Obstructive sleep apnea (adult) (pediatric); E87.5 Hyperkalemia; E66.9 Obesity, unspecified; K59.00 Constipation, unspecified; E03.9 Hypothyroidism, unspecified; I25.10 Atherosclerotic heart disease of native coronary artery without angina pectoris; D64.9 Anemia, unspecified; Z90.49 Acquired absence of other specified parts of digestive tract; Z90.710 Acquired absence of both cervix and uterus; Z98.890 Other specified postprocedural states; Z95.5 Presence of coronary angioplasty implant and graft; Z79.899 Other long term (current) drug therapy; Z79.82 Long term (current) use of aspirin
CPT/HCPCS: 36415; 36416; 80053; 82248; 82977; 85025; J7050; Q0162

== ENCOUNTER 2022-08-28 11:24 | Emergency (ER) | payer MEDICARE, OTHER ==
[~2022-08-28 11:24] MED LIST: Iopamidol 370 76% 100 ML VIAL ONE
[2022-08-28] MEDS ORDERED: Morphine 4 MG/ML VIAL ONE (11:41)
[2022-08-28 12:06] LABS: Lipase 21 U/L (8-78); Magnesium 2.8 mg/dL (1.6-2.6)
[2022-08-28] MEDS ORDERED: Ondansetron PF 4 MG/2 ML Vial ONE (13:51)
[2022-08-28] MEDS ORDERED: HYDROmorphone 0.5 MG/0.5 ML SYRINGE ONE (13:51)
== END 2022-08-28 15:19 | disposition critical access hospital (66) ==
LOC: BURERS 11:24
DX: K92.1 Melena (principal); I25.10 Atherosclerotic heart disease of native coronary artery without angina pectoris; I10 Essential (primary) hypertension; E66.9 Obesity, unspecified; E03.9 Hypothyroidism, unspecified; Z79.899 Other long term (current) drug therapy
CPT/HCPCS: 74177; 83690; 83735; 96374; 96375; J1170; J2270; J2405; Q9967